=== PATIENT | female | born 1960 | race Caucasian/White ===

== ENCOUNTER → 2019-03-24 | Outpatient (CLI) | payer OTHER ==
[~2019-03-24] MED LIST: AMITRIPTYLINE H25 M2 PO; ARIXTRA SUBQ; ASPIRIN325; COZAAR 25 MG TA25 MG PO; METAMUCIL PAC1 UDPK1; OMEPRAZOLE 20 M20 MG PO; OXYCODONE HCL 55 MG PO; PERCOCET 5-3251 EACH PO; SIMVASTATIN20 MG PO
--- NOTE | 2019-03-24 12:24 | EKG ---
[place] [address] ELECTROCARDIOGRAM REPORT Name: DAMIEN ROQUE Room: [facility]#: [id number] Admission: 03/24/19 Attend Phys: Dharmesh Bradford MD Discharge: Date of : 60 Report #: [id number] THIS REPORT FOR: //name// [facility] Test Date: 2019-03-24 Test Time: 11:28:38 Pat Name: DAMIEN ROQUE Department: Room: Gender: F [employer]: CORRIE : 1960 Requested By: Dharmesh Bradford Order Number: [id number] Reading MD: Dharmesh Blanca Measurements Intervals [place] Rate: 78 P: 19 NC: 124 QRS: 31 QRSD: 95 T: 60 QT: 385 QTc: 439 Interpretive Statements Sinus rhythm Compared to ECG 01/22/2012 17:13:02 No significant changes Electronically Signed On 03-24-2019 12:23:54 CDT by Dharmesh Blanca [email or web address] <ELECTRONICALLY SIGNED> By: Dharmesh Blanca MD, [facility] 03/24/19 1223 1128 1128 Dharmesh Blanca MD, FACC /EPI
== END ==
LOC: M.CRD 11:15
DX: Z01.810 Encounter for preprocedural cardiovascular examination (principal); I10 Essential (primary) hypertension